=== PATIENT | male | born 1990 | race Caucasian/White ===

== ENCOUNTER 2017-02-02 18:42 | Emergency (ER) | payer OTHER, SELFPAY ==
--- NOTE | ~2017-02-02 | ER ---
PATIENT'S NAME: FRANCES SIMPSON [facility] AGE: 26 Y [address] ROOM: [place] [address] LOCATION: [facility] ADMIT DATE: 02/02/2017 ER/Outpatient Report DISCHARGE DATE: 02/02/2017 FAMILY PHYSICIAN: Michael Cordero MD ATTENDING PHYSICIAN: Maximino Doan CHIEF COMPLAINT: Shortness of breath. HISTORY OF PRESENT ILLNESS: Mr. Simpson presents for back pain and shortness of breath. The symptoms started this morning upon waking. He had some alcohol last night more than usual but only four drinks. He states that he woke up this morning and vomited and has had back pain ever since. It has slowly gotten worse throughout the day and feels like a spasm. He denies any sharp tearing pains. No heaviness or pressure in the chest. Throughout the day, particular this evening, he has felt more short of breath and now his hands are beginning to tingle and spasm. No real symptoms in the lower extremities. He is, otherwise, feeling okay. He denies any medical history. Denies smoking. No other acute processes at this time. PAST MEDICAL HISTORY: Documented on the record and reviewed by me. SOCIAL HISTORY: Documented on the record and reviewed by me. MEDICATIONS: Documented on the record and reviewed by me. ALLERGIES: DOCUMENTED ON THE RECORD AND REVIEWED BY ME. REVIEW OF SYSTEMS: All systems reviewed and are negative except as noted in the HPI. PHYSICAL EXAMINATION: VITAL SIGNS: Blood pressure is 143/71, pulse of 96, respiratory rate is 20, temperature 100.6, SpO2 is 97% on room air. Pain is rated at 3/10. GENERAL: Age-appropriate male. No obvious pain. Very mild distress, sitting semirecumbent on the exam table. NEUROLOGIC: Awake and alert. GCS 15. No focal deficits. No asymmetry. No gait abnormalities. HEENT: Normocephalic, atraumatic. Eyes are PERRL. Oropharynx is clear. NECK: Supple. Trachea is midline. PATIENT'S NAME: FRANCES SIMPSON [facility] AGE: 26 Y [address] ROOM: [place] [address] LOCATION: [facility] ADMIT DATE: 02/02/2017 ER/Outpatient Report DISCHARGE DATE: 02/02/2017 FAMILY PHYSICIAN: Michael Cordero MD ATTENDING PHYSICIAN: Maximino Doan HEART: Regular rate and rhythm with no murmurs. LUNGS: Tachypneic but clear to auscultation in all lung braden with no rhonchi, wheezes, or rales. ABDOMEN: Soft, nontender, and nondistended. No rebound or guarding. No masses. BACK: Normal to inspection and palpation of the spine. There is paraspinal tenderness bilateral between the shoulder blades that does exactly reproduce his pain. EXTREMITIES: Warm and well perfused. No erythema, edema, or deformities. SKIN: Clean, dry, and intact. LABORATORY DATA AND X-RAYS: Chest x-ray is unremarkable per my review. Labs: CBC; white count is elevated at 13.0 with 10.7 neutrophils, hemoglobin 15.8, platelets 183. ESR is 8. Procalcitonin is below detectable threshold. CRP is 3.27. CMS with mild hypokalemia at 3.4, otherwise, unremarkable electrolytes, renal function, and LFTs. Venous blood gas; pH 7.51, pCO2 is 37. EKG reveals sinus rhythm, rate of 95 with normal intervals and axis. No signs of acute ischemia, dysrhythmia, or other concerning findings. IMPRESSION: 1. Upper mid back spasm of the paraspinous muscles. 2. Mild hyperventilation with hypocarbia and resultant carpopedal spasms. EMERGENCY DEPARTMENT COURSE: The patient was seen and evaluated as above. Symptoms were managed with Valium with marked improvement in his overall discomfort, back spasm, and his carpopedal spasms. There is no evidence on his presentation consistent with acute coronary syndrome, pneumonia, pneumothorax, metabolic derangement. His presentation is not consistent with any pulmonary pathology such as PE or pneumonia, not consistent with dissection. The patient is to follow up with PCP as needed. Given prescription for Valium for same. All questions were answered, and the patient was discharged. MD MADELAINE VICTOR/kathy /[id number] d: 02/03/17 0235 t: 07/18/17 1303, OUTPATIENT REPORT
[2017-02-02 19:11] LABS: BICARBONATE 29.5 mmol/L (18.0-23.0); PCO2 37 mmHg (35-45); PO2 31 mmHg (80-90)
[2017-02-02 19:12] LABS: BASOPHIL # 0.1 K/uL (0.0-0.2); BASOPHIL % 0.5 %; EOSINOPHIL % 0.2 %; HEMATOCRIT 43.5 % (37.0-53.0); HEMOGLOBIN 15.8 g/dL (12.0-17.0); IMMATURE GRANULOCYTE % 0.3 %; LYMPHOCYTE # 1.4 K/uL (0.8-4.0); LYMPHOCYTE % 10.5 %; MCH 30.1 pg (27.0-34.0); MCHC 36.3 gm/dL (32.0-36.5); MCV 82.9 fl (83.0-98.0); MONOCYTE # 0.8 K/uL (0.0-1.0); MONOCYTE % 6.4 %; MPV 10.6 fl (9.4-12.4); NEUTROPHIL # (ANC) 10.7 K/uL (1.4-9.0); NEUTROPHIL % 82.1 %; NRBC % 0 /100WBC (0-0.00); PLATELET COUNT 183 K/uL (150-450); RBC 5.25 M/uL (4.00-6.00); RDW-CV 13.7 % (11.9-14.6)
[2017-02-02 19:31] LABS: ALK PHOS 93 IU/L (33-138); ALT 26 IU/L (12-78); ANION GAP 12.4 (10.0-19.0); AST 21 IU/L (10-40); BLOOD UREA NITROGEN 12 mg/dL (6-24); CALCIUM 8.5 mg/dL (8.5-10.5); CHLORIDE 103 mMol/L (96-110); CO2 26 mMol/L (22-32); CREATININE 1.1 mg/dL (0.6-1.3); POTASSIUM 3.4 mMol/L (3.7-5.1); SODIUM 138 mMol/L (135-145); TOTAL BILIRUBIN 1.1 mg/dL (0.0-1.5)
== END 2017-02-02 20:21 | disposition disaster alternative care site (69) ==
LOC: GMED 18:42
PROVIDERS: Emergency Medicine
DX: M62.830 Muscle spasm of back (principal); R06.4 Hyperventilation; R06.89 Other abnormalities of breathing; Z98.890 Other specified postprocedural states; Z87.39 Personal history of other diseases of the musculoskeletal system and connective tissue
CPT/HCPCS: J3360; J7030